=== PATIENT | male | born 2000 | race Caucasian/White ===

== ENCOUNTER 2021-02-04 09:26 | Emergency (ER) | payer OTHER, SELFPAY ==
--- NOTE | 2021-02-04 09:29 | ED.URI ---
HPI - URI/Sore Throat General Chief Complaint: Upper Respiratory Infection Stated Complaint: sore throat Time Seen by Provider: 02/04/21 09:29 Source: patient and RN notes reviewed History of Present Illness HPI Narrative: Patient is a 20-year-old male who presents the urgent care with complaints of sore throat for 3 days. Patient states he also ran 102.5 fever last night. States that he has been taking Mucinex but denies any use of Tylenol/ibuprofen. Patient denies of headache, nausea, vomiting. States that he has had Covid and has not had the vaccination. Denies of any known exposures to strep or Covid. No other acute complaints. No acute distress noted. Patient aware of the plan of care. Some parts of this dictation were generated by voice recognition software and may contain typographical and/or grammatical inaccuracies. Related Data Allergies Allergy/AdvReac Type Severity Reaction Status Date / Time No Known Allergies Allergy Verified 02/04/21 09:54 Review of Systems Review of Systems: CONSTITUTIONAL: Denies fever, chills, or sweats. EYES: Denies visual changes, redness, or discharge. ENT: Denies rhinorrhea, congestion, or otalgia. Reports of sore throat CARDIOVASCULAR: Denies chest pain, palpitations, or edema. RESPIRATORY: Denies cough or dyspnea. GASTROINTESTINAL: Denies abdominal pain, nausea, vomiting, or diarrhea. GENITOURINARY: Denies dysuria or hematuria. SKIN: Denies rash or itching. MUSCULOSKELETAL: Denies back pain, joint pain, or myalgia. NEUROLOGIC: Denies headache, numbness, or weakness. All other systems reviewed are negative, except as documented in HPI. PMFSH Comments At the time of my signature, I reviewed and agree with the nursing past medical, surgical, social, and family history. There is no relevant family history pertinent to the patient complaint. Exam Narrative: GENERAL: This is a well-nourished, well-developed patient, in no apparent distress. HEAD: normocephalic, atraumatic. EYES: PERRL. Sclera clear/white. Vision is grossly intact. EARS: External ears normal, auditory canals clear and without drainage, TMs normal without perforation. Hearing grossly intact. NOSE: External nose normal with no obvious nasal discharge, nares without redness, no rhinorrhea. THROAT: Mucous membranes moist, moderate erythema to the posterior pharynx with moderate postnasal drainage and exudate noted on the right NECK: Neck supple, non-tender without lymphadenopathy CARDIOVASCULAR: Regular rate and rhythm without murmurs, gallops, or rubs. RESPIRATORY: Clear to auscultation. Breath sounds equal bilaterally. No wheezes, rales, or rhonchi. SKIN: warm, intact with no suspicious lesions or rash, good texture and turgor. NEURO: awake, alert, and oriented to person, place and time. There were no obvious focal neurologic abnormalities. EXTREMITIES: No clubbing, cyanosis, or edema. Course Vital Signs Vital signs: Vital Signs Temperature 99.4 F 02/04/21 09:35 Pulse Rate 102 H 02/04/21 09:35 Respiratory Rate 16 02/04/21 09:35 Blood Pressure 129/71 02/04/21 09:35 Pulse Oximetry 98 02/04/21 09:35 Temperature 99.4 F 02/04/21 09:35 Pulse Rate 102 H 02/04/21 09:35 Respiratory Rate 16 02/04/21 09:35 Blood Pressure 129/71 02/04/21 09:35 Pulse Oximetry 98 02/04/21 09:35 Reviewed MDM - URI/Sore Throat MDM Narrative Medical decision making narrative: Reviewed lab results with the patient. He is aware that strep swab was negative. Educated patient on culture and we will call within 72 hours if culture is positive and antibiotics are necessary. We will send your PCR swab to the lab and call you within 3 days with your results. Until then, you should follow CDC guidelines and remain quarantined. Continue [id number] medications such as Tylenol/ibuprofen/Mucinex as needed. If you develop any increase in symptoms associated with high persistent fevers, nausea, vomiting, shortness of br
[2021-02-04 09:35] VITALS: BP 129/71; PULSE 102; RESP 16; TEMP 37.4; O2SAT 98
[2021-02-05 17:06] LABS: SARS-CoV-2 RNA PCR Negative
== END 2021-02-04 10:03 | disposition home or self-care (01) ==
PROVIDERS: Emergency Provider Nurse Practitioner Family; PCP Nurse Practitioner Family
DX: J02.9 Acute pharyngitis, unspecified (principal); Z20.822 Contact with and (suspected) exposure to COVID-19
CPT/HCPCS: 87081; 87880; 99213; C9803; G0463; U0003; U0005

== ENCOUNTER 2021-10-12 12:59 | Emergency (ER) | payer OTHER, MEDICAID, SELFPAY ==
[2021-10-12 13:20] VITALS: BP 125/66; PULSE 95; RESP 14; TEMP 36.8; O2SAT 100
--- NOTE | 2021-10-12 14:47 | ED.GENADULT ---
HPI - General Adult General Chief complaint: Upper Respiratory Infection Stated complaint: Fever/Sore Throat Source: patient Mode of arrival: ambulatory Limitations: no limitations History of Present Illness HPI narrative: Patient presents for evaluation of sore throat. Symptoms started 3 days ago and were mild at that time. 2 days ago he had worsening of his symptoms. He has experienced fever, chills, body aches, fatigue. He also has some pain in right ear and some cervical lymphadenopathy. He has a chronic mild productive cough of clear sputum, which is unchanged. He attributes this to electronic cigarette use. Denies any nausea, vomiting, diarrhea. No recent sick contacts to his knowledge. He had some 500mg amoxicillin leftover. He has been taking it twice per day since Tuesday. No additional complaints or concerns. Related Data Home Medications Medication Instructions Recorded Confirmed No Home Medications 10/12/21 10/12/21 Allergies Allergy/AdvReac Type Severity Reaction Status Date / Time No Known Allergies Allergy Verified 10/12/21 14:13 Review of Systems Review of Systems: CONSTITUTIONAL: Reports fever, chills, fatigue. EYES: Denies visual changes, redness, or discharge. ENT: Reports sore throat and right-sided otalgia. Denies rhinorrhea, congestion CARDIOVASCULAR: Denies chest pain, palpitations, or edema. RESPIRATORY: Reports mild chronic productive cough clear sputum. Denies dyspnea. GASTROINTESTINAL: Denies abdominal pain, nausea, vomiting, or diarrhea. GENITOURINARY: Denies dysuria or hematuria. SKIN: Denies rash or itching. MUSCULOSKELETAL: Reports generalized body aches NEUROLOGIC: Denies headache, numbness, dizziness, or weakness. PSYCHIATRIC: Denies anxiety or depression. [facility] Past Medical History Medical History No pertinent past medical history Surgical History Surgical History History of ankle surgery Family History Family History Mother Family history non-contributory Social History Social History Smoking status: Current every day smoker Tobacco type: e-cigarettes/vaping Substance use: current Substance use type: marijuana Gender identity (if verbalized by the patient): Male Sexual Orientation (if Verbalized by the Patient): Straight or Heterosexual Spiritual care concerns: No Exam Narrative: GENERAL: Well-appearing, well-nourished, and in no acute distress. HEAD: Normocephalic, atraumatic. EYES: PERRLA and EOMI. ENT: Nares clear, no rhinorrhea or epistaxis. Mucous membranes moist. Asymmetric appearance of his tonsils with right greater in size than left. There is white/green exudate to right tonsil. Uvula is midline. Bilateral TMs pearly arango nonbulging NECK: Supple. No adenopathy or masses. No carotid bruits or JVD CHEST: Clear to auscultation. No respiratory distress. No wheezes rales or rhonchi HEART: Regular rate and rhythm. No murmur heard. Normal peripheral pulses. ABDOMEN: Soft, nontender, nondistended, normal active bowel sounds. EXTREMITIES: Normal range of motion. No edema. SKIN: Warm, dry, no rash. NEURO: No focal deficits. Alert and oriented x3. PSYCH: Normal mood and affect. Course Course Emergency Course: This is a 20-year-old male here today for evaluation of a sore throat. I am concerned he may have a peritonsillar abscess based on asymmetric appearance of his tonsils with fever and chills. He had negative COVID, influenza, and strep test here. I advised he go to ER for further evaluation. He would like benefit from labs and CT imaging. He requested to go to [facility]. I called the facility and spoke with Adelaida, charge nurse, who indicated that Dr Troy would agree to accept pt to Dept
== END 2021-10-12 14:45 | disposition short-term general hospital (02) ==
PROVIDERS: Emergency Provider Nurse Practitioner; PCP Nurse Practitioner Family
DX: J02.9 Acute pharyngitis, unspecified (principal); Z20.822 Contact with and (suspected) exposure to COVID-19; F17.290 Nicotine dependence, other tobacco product, uncomplicated
CPT/HCPCS: 87081; 87426; 87804; 87880; 99213; C9803; G0463

== ENCOUNTER 2022-01-04 16:35 | Emergency (ER) | payer OTHER, SELFPAY ==
--- NOTE | ~2022-01-04 | XR_ITS ---
EXAM: XR foot RT min 3V DATE: 01/04/2022 17:04 HISTORY: 01/01/22 DROPPED 2 SHEETS OF PLY-WOOD. ANT. FOOT. . COMPARISON: None available. FINDINGS: Normal mineralization. No fracture or dislocation. No lytic or blastic lesion. Joint space s and physes are maintained. No erosion or periosteal change. Soft tissues within normal limits. IMPRESSION: No acute osseous finding in the right foot. Reviewed, dictated and finalized at location K.
--- NOTE | 2022-01-04 16:39 | ED.LOWEXIN ---
HPI - Extremity Injury (Lower) General Chief Complaint: Extremity Injury, Lower Stated Complaint: right foot injury Time Seen by Provider: 01/04/22 16:39 Source: patient and RN notes reviewed History of Present Illness HPI Narrative: Patient is a 21-year-old male who presents the urgent care with complaints of right foot pain, swelling and bruising. Patient states he dropped plywood on his foot on Tuesday while at work and is having increased pain and swelling. Patient states he is unable to bear weight on the foot today and therefore called off work. Patient has not done anything [id number] for his pain. No other acute complaints. No acute distress noted. Patient aware of the plan of care. Some parts of this dictation were generated by voice recognition software and may contain typographical and/or grammatical inaccuracies. Related Data Home Medications Medication Instructions Recorded Confirmed No Home Medications 10/12/21 10/12/21 Allergies Allergy/AdvReac Type Severity Reaction Status Date / Time No Known Allergies Allergy Verified 10/12/21 14:13 Review of Systems Review of Systems: CONSTITUTIONAL: Denies fever, chills, or sweats. EYES: Denies visual changes, redness, or discharge. ENT: Denies rhinorrhea, congestion, sore throat, or otalgia. CARDIOVASCULAR: Denies chest pain, palpitations, or edema. RESPIRATORY: Denies cough or dyspnea. GASTROINTESTINAL: Denies abdominal pain, nausea, vomiting, or diarrhea. GENITOURINARY: Denies dysuria or hematuria. SKIN: Denies rash or itching. MUSCULOSKELETAL: Reports of right foot pain and swelling NEUROLOGIC: Denies headache, numbness, or weakness. All other systems reviewed are negative, except as documented in HPI. [facility] Past Medical History Medical History (Updated 01/04/22 @ 17:22 by MESSI Prabhakar) No pertinent past medical history Surgical History Surgical History History of ankle surgery Family History Family History Mother Family history non-contributory Social History Social History Smoking status: Current every day smoker Tobacco type: e-cigarettes/vaping Substance use: current Substance use type: marijuana Gender identity (if verbalized by the patient): Male Sexual Orientation (if Verbalized by the Patient): Straight or Heterosexual Spiritual care concerns: No Comments At the time of my signature, I reviewed and agree with the nursing past medical, surgical, social, and family history. There is no relevant family history pertinent to the patient complaint. Exam Narrative: GENERAL: This is a well-nourished, well-developed patient, in no apparent distress. HEAD: normocephalic, atraumatic. EYES: PERRL. Sclera clear/white. Vision is grossly intact. EARS: External ears normal NOSE: External nose normal with no obvious nasal discharge, nares without redness, no rhinorrhea. THROAT: Mucous membranes moist NECK: Neck supple SKIN: warm, intact with no suspicious lesions or rash, good texture and turgor. NEURO: awake, alert, and oriented to person, place and time. There were no obvious focal neurologic abnormalities. EXTREMITIES: Mild dorsal right foot edema with mild 4 x 4 centimeter area of old ecchymosis to the dorsal lateral aspect of the right foot. Positive strong right pedal pulse with capillary refill less than 2 seconds. Range of motion of right lower extremity within normal limits with mild exacerbated pain on weightbearing Course Course Level of Care: Express Care Visit Vital Signs Vital signs: Vital Signs Temperature 97.8 F 01/04/22 16:47 Pulse Rate 90 01/04/22 16:47 Respiratory Rate 16 01/04/22 16:47 Blood Pressure 142/77 H 01/04/22 16:47 Pulse Oximetry 99 01/04/22 16:47 Oxygen Delivery Room Air 01/04/22 16:4
[2022-01-04 16:47] VITALS: BP 142/77; PULSE 90; RESP 16; TEMP 36.6; O2SAT 99
== END 2022-01-04 17:31 | disposition home or self-care (01) ==
PROVIDERS: Emergency Provider Nurse Practitioner Family; PCP Nurse Practitioner Family
DX: S90.31XA Contusion of right foot, initial encounter (principal); W20.8XXA Other cause of strike by thrown, projected or falling object, initial encounter; Y99.0 Civilian activity done for income or pay; F17.290 Nicotine dependence, other tobacco product, uncomplicated
CPT/HCPCS: 73630; 99213; G0463

== ENCOUNTER 2022-02-03 14:29 | Emergency (ER) | payer BC, OTHER, SELFPAY ==
[2022-02-03 14:31] VITALS: BP 126/80; PULSE 97; RESP 20; TEMP 37.1; O2SAT 97
--- NOTE | 2022-02-03 14:51 | ED.GENADULT ---
HPI - General Adult General Chief complaint: Nausea/Vomiting/Diarrhea Stated complaint: Vomiting/Headache Time Seen by Provider: 02/03/22 14:48 Source: patient, RN notes reviewed and old records reviewed Mode of arrival: ambulatory Limitations: no limitations History of Present Illness HPI narrative: 21-year-old male who presents to [facility] care with complaints of headache, vomiting, runny nose, cough some body aches since Tuesday. Patient states he has had his COVID vaccinations. Patient reports that he does not have and sore throat or any ear pain. Pateint denies any known fevers but has been sweating profusely. Patient reports that he has not been able to keep food down today but he has been drinking liquids., denies any abdominal pain, diarrhea or constipation. MD complaint: headache, vomiing, cough and runny nose Onset (ago): day(s) (5) Location: head Severity scale (1-10): 2 Quality: aching Treatments prior to arrival: other (Tylenol) Related Data Allergies Allergy/AdvReac Type Severity Reaction Status Date / Time No Known Allergies Allergy Verified 10/12/21 14:13 Review of Systems Review of Systems: CONSTITUTIONAL: Denies fever, chills, reports profuse sweating EYES: Denies visual changes, redness, or discharge. ENT: Positive for rhinorrhea, congestion, no sore throat, or otalgia. CARDIOVASCULAR: Denies chest pain, palpitations, or edema. RESPIRATORY: positive for cough denies dyspnea. GASTROINTESTINAL: Denies abdominal pain,positive for nausea, vomiting, no diarrhea. GENITOURINARY: Denies dysuria or hematuria. SKIN: Denies rash or itching. MUSCULOSKELETAL: Denies back pain, joint pain, or myalgia. NEUROLOGIC: Positive for headache,no numbness, or weakness. PSYCHIATRIC: Denies anxiety or depression. All systems reviewed & are unremarkable except as noted in HPI and below Eyes: Comments: o [facility] Past Medical History Medical History (Updated 02/04/22 @ 00:01 by Elaine Daemcamila) No pertinent past medical history Surgical History Surgical History History of ankle surgery Family History Family History Mother Family history non-contributory Social History Social History Smoking status: Current every day smoker Tobacco type: e-cigarettes/vaping Substance use: current Substance use type: marijuana Gender identity (if verbalized by the patient): Male Sexual Orientation (if Verbalized by the Patient): Straight or Heterosexual Spiritual care concerns: No Comments At time of signature, agree with nursing past medical, surgical, social and family history. There is no relevant family history pertinent to the presenting complaint Exam Narrative: GENERAL: Well-appearing, well-nourished, and in no acute distress. HEAD: Normocephalic, atraumatic. EYES: PERRLA and EOMI. ENT: Nares clear, clear rhinorrhea no epistaxis. Mucous membranes moist.TM's normal with good light reflex, throat pink with no lesions or swelling NECK: Supple. CHEST: Clear to auscultation. No respiratory distress.SAO2 97% on room air HEART: Regular rate and rhythm. No murmur heard. Normal peripheral pulses. ABDOMEN: Soft, nontender, nondistended, normal active bowel sounds. positive for nausea and vomiting EXTREMITIES: Normal range of motion. No edema. SKIN: Warm, dry, no rash. NEURO: No focal deficits. Alert and oriented x3. Course Course Level of Care: Express Care Visit Vital Signs Vital signs: Vital Signs Temperature 37.1 C 02/03/22 14:31 Pulse Rate 97 02/03/22 14:31 Respiratory Rate 20 02/03/22 14:31 Blood Pressure 126/80 02/03/22 14:31 Pulse Oximetry 97 02/03/22 14:31 Oxygen Delivery Room Air 02/03/22 14:31 Temperature 37.1 C 02/03/22 14:31 Pulse Rate 97 02/03/22 14:31 Respiratory Rate 20 02/03/22 14:31 Bl
== END 2022-02-03 15:30 | disposition home or self-care (01) ==
PROVIDERS: Emergency Provider Registered Nurse; PCP Nurse Practitioner Family
DX: B34.9 Viral infection, unspecified (principal); Z20.822 Contact with and (suspected) exposure to COVID-19; F17.290 Nicotine dependence, other tobacco product, uncomplicated; F12.90 Cannabis use, unspecified, uncomplicated
CPT/HCPCS: 87426; 87804; 99213; C9803; G0463

== ENCOUNTER 2022-08-04 10:42 | Emergency (ER) | payer OTHER, SELFPAY ==
[2022-08-04 10:56] VITALS: BP 123/74; PULSE 81; RESP 20; TEMP 36.6; O2SAT 100
--- NOTE | 2022-08-04 11:05 | ED.NAVMDI ---
HPI - Nausea/Vomiting/Diarrhea General Chief complaint: Nausea/Vomiting/Diarrhea Stated complaint: nausea diarrhea Time Seen by Provider: 08/04/22 11:05 Source: patient and RN notes reviewed History of Present Illness HPI Narrative: Patient is a 21-year-old male who presents to urgent care with complaints of nausea and vomiting that started yesterday. Patient states that the last thing he ate was at a sushi restaurant. Patient states he has tried to take something [id number] for nausea and DayQuil. Patient states he has mild abdominal cramping but believes they diarrhea has stopped. Denies any vomiting or fever. No other acute complaints. No acute distress noted. Patient aware of the plan of care. Some parts of this dictation were generated by voice recognition software and may contain typographical and/or grammatical inaccuracies. Related Data Allergies Allergy/AdvReac Type Severity Reaction Status Date / Time No Known Allergies Allergy Verified 08/04/22 11:01 Review of Systems Review of Systems: CONSTITUTIONAL: Denies fever, chills, or sweats. EYES: Denies visual changes, redness, or discharge. ENT: Denies rhinorrhea, congestion, sore throat, or otalgia. CARDIOVASCULAR: Denies chest pain, palpitations, or edema. RESPIRATORY: Denies cough or dyspnea. GASTROINTESTINAL: Reports of nausea, abdominal discomfort and diarrhea GENITOURINARY: Denies dysuria or hematuria. SKIN: Denies rash or itching. MUSCULOSKELETAL: Denies back pain, joint pain, or myalgia. NEUROLOGIC: Denies headache, numbness, or weakness. All other systems reviewed are negative, except as documented in HPI. [facility] Past Medical History Medical History (Updated 08/04/22 @ 11:28 by MESSI Prabhakar) No pertinent past medical history Surgical History Surgical History History of ankle surgery Family History Family History Mother Family history non-contributory Social History Social History Smoking status: Current every day smoker Tobacco type: e-cigarettes/vaping Substance use: current Substance use type: marijuana Gender identity (if verbalized by the patient): Male Sexual Orientation (if Verbalized by the Patient): Straight or Heterosexual Spiritual care concerns: No Comments At the time of my signature, I reviewed and agree with the nursing past medical, surgical, social, and family history. There is no relevant family history pertinent to the patient complaint. Exam Narrative: GENERAL: This is a well-nourished, well-developed patient, in no apparent distress. HEAD: normocephalic, atraumatic. EYES: PERRL. Sclera clear/white. Vision is grossly intact. EARS: External ears normal NOSE: External nose normal with no obvious nasal discharge, nares without redness, no rhinorrhea. THROAT: Mucous membranes moist NECK: Neck supple GASTROINTESTINAL: Abdomen soft, mild diffuse tenderness, nondistended. Bowel sounds are active. SKIN: warm, intact with no suspicious lesions or rash, good texture and turgor. NEURO: awake, alert, and oriented to person, place and time. There were no obvious focal neurologic abnormalities. EXTREMITIES: No clubbing, cyanosis, or edema. Course Course Level of Care: Express Care Visit Vital Signs Vital signs: Vital Signs Temperature 97.9 F 08/04/22 10:56 Pulse Rate 81 08/04/22 10:56 Respiratory Rate 20 08/04/22 10:56 Blood Pressure 123/74 08/04/22 10:56 Pulse Oximetry 100 08/04/22 10:56 Oxygen Delivery Room Air 08/04/22 10:56 Temperature 97.9 F 08/04/22 10:56 Pulse Rate 81 08/04/22 10:56 Respiratory Rate 20 08/04/22 10:56 Blood Pressure 123/74 08/04/22 10:56 Pulse Oximetry 100 08/04/22 10:56 Oxygen Delivery Room Air 08/04/22 10:56 Reviewed MDM - Nausea/Vomiting/Diar
== END 2022-08-04 11:33 | disposition home or self-care (01) ==
PROVIDERS: Emergency Provider Nurse Practitioner Family; PCP Nurse Practitioner Family
DX: R11.2 Nausea with vomiting, unspecified (principal); R19.7 Diarrhea, unspecified; F17.290 Nicotine dependence, other tobacco product, uncomplicated
CPT/HCPCS: 99213; G0463

== ENCOUNTER 2022-11-25 17:19 | Emergency (ER) | payer OTHER, SELFPAY ==
--- NOTE | 2022-11-25 17:22 | ED.URI ---
HPI - URI/Sore Throat General Chief Complaint: Upper Respiratory Infection Stated Complaint: Sore Throat Time Seen by Provider: 11/25/22 17:22 Source: patient Mode of arrival: ambulatory Limitations: no limitations History of Present Illness HPI Narrative: Boaz is a 22-year-old male patient presenting to the clinic today with complaints of a sore throat x1 day. He reports symptoms began yesterday. Complaints of headache and body aches as well. No known fever or chills. MD elicited complaint: sore throat Related Data Allergies Allergy/AdvReac Type Severity Reaction Status Date / Time No Known Allergies Allergy Verified 11/25/22 17:29 Review of Systems Review of Systems: Pertinent positives per HPI. Patient denies any fever, chills, rash, headache, visual changes, dizziness, cough, shortness of breath, chest pain, palpitations, nausea, vomiting, diarrhea, constipation, abdominal pain, or any urinary issues. PMFSH Past Medical History Medical History No pertinent past medical history Surgical History Surgical History History of ankle surgery Family History Family History Mother Family history non-contributory Social History Social History Smoking status: Current every day smoker Tobacco type: e-cigarettes/vaping Substance use: current Substance use type: marijuana Gender identity (if verbalized by the patient): Male Sexual Orientation (if Verbalized by the Patient): Straight or Heterosexual Spiritual care concerns: No Comments At the time of my signature, I reviewed and agree with the nursing past medical, surgical, social, and family history. There is no relevant family history pertinent to the patient complaint. Exam Narrative: General: Well-developed, well nourished, in no apparent distress Head: Normocephalic, atraumatic Eyes: Pupils equally round and reactive to light bilaterally, EOM intact, sclera and conjunctive clear, no discharge, lids normal Ears: TMs intact and clear, ear canals clear, no drainage, grossly hearing normal. Nose: Nares patent, no discharge, no inflammation, no sinus tenderness. Mouth: Oral pharynx red with bilateral tonsillar swelling without lesions or masses, good dentition, MMM. Neck: Supple, trachea midline, enlargement of anterior cervical nodes, no thyroid masses or goiter palpable. Cardio: Regular rate and rhythm, s1 and s2 normal, no murmur appreciated. Resp: Clear to auscultation bilaterally, no rhonchi, rales, wheezing or rubs Course Course Emergency Course: Portions of this record may have been created with voice recognition software. Level of Care: Express Care Visit Vital Signs Vital signs: Vital signs reviewed MDM - URI/Sore Throat MDM Narrative Medical decision making narrative: At the time of visit patient is resting comfortably on the exam table. Strep screen was obtained Differential Diagnosis Differential diagnosis: Likely upper respiratory infection, otitis media, sinusitis, viral infection, bronchitis, influenza, pharyngitis and other (COVID) Discharge Plan Discharge Clinical Impression: Acute streptococcal pharyngitis Patient Disposition: Home, Self-Care Condition: Stable Instructions: Antibiotic Form, Strep Throat (ED) Additional Instructions: Take prescription medications only as prescribed-amoxicillin Change your toothbrush in 24 hours after initiation of the antibiotics Increase fluids and stay well hydrated Tylenol/motrin for pain/fever Flonase and OTC antihistamines as directed Vicks vapor rub to open sinuses Sinus rinses for congestion Cepacol spray, cough drops, throat lozenges, warm tea with honey/lemon, gargle salt water to soothe throat BR
[2022-11-25 17:27] VITALS: BP 127/73; PULSE 109; RESP 16; TEMP 36.4; O2SAT 99
== END 2022-11-25 17:48 | disposition home or self-care (01) ==
PROVIDERS: Emergency Provider Nurse Practitioner Family; PCP Nurse Practitioner Family
DX: J02.0 Streptococcal pharyngitis (principal); F17.290 Nicotine dependence, other tobacco product, uncomplicated; F12.90 Cannabis use, unspecified, uncomplicated
CPT/HCPCS: 87880; 99213; G0463

== ENCOUNTER 2024-09-28 07:54 | Outpatient (CLI) | payer OTHER, SELFPAY ==
--- NOTE | ~2024-09-28 | US_ITS ---
US abdomen limited INDICATION: Right upper quadrant pain PROCEDURE: Realtime right upper abdominal ultrasound. COMPARISON: No prior studies for comparison. FINDINGS: The pancreas is normal without focal mass or pancreatic ductal dilation. Liver echotexture is increased, consistent with fatty infiltration. There is normal directional flow in the portal ve in. The gallbladder is normal without stones, gallbladder wall thickening or pericholecystic fluid. Comm on bile duct measures 4 mm. No sonographic Scott's sign. IMPRESSION: 1: Fatty infiltration of the liver. Reviewed, dictated and finalized at location A.
== END 2024-09-28 07:55 | disposition home or self-care (01) ==
PROVIDERS: PCP Nurse Practitioner Family; Visit Provider Nurse Practitioner Family
DX: K76.0 Fatty (change of) liver, not elsewhere classified (principal); R74.8 Abnormal levels of other serum enzymes
CPT/HCPCS: 76705

== ENCOUNTER 2025-03-26 09:07 | Emergency (ER) | payer OTHER, SELFPAY ==
[2025-03-26 09:12] VITALS: BP 134/81; PULSE 90; RESP 20; TEMP 37.3; O2SAT 100
--- OUTSIDE RECORDS SUMMARY | 2025-03-26 09:22 | XMS_ITS | Clinical Summary ---
Author Organization [facility] Address [address] [place] [address] Phone Care Team Providers Care Hearing Impaired Itinerant Teacher Name Role Phone Provider, None Primary Care Provider Unavailabl e Allergies No known active allergies Medications No known medications Active Problems No known active problems Social History Tobacco Use Types Packs/Day Years Used Date Smoking Tobacco: Never Assessed Sex and Gender Information Value Date Recorded Sex Assigned at Not on file Legal Sex Male 11:14 AM DETECTIVE CHIEF Gender Identity Not on file Sexual Orientation Not on file Last Filed Vital Signs Vital Sign Reading Time Taken Comments Blood Pressure 136/80 04/24/2018 11:27 AM DETECTIVE CHIEF Pulse 80 04/24/2018 11:27 AM DETECTIVE CHIEF Temperature 37.2 C (98.9 F) 04/24/2018 11:27 AM DETECTIVE CHIEF Respiratory Rate 16 04/24/2018 11:27 AM DETECTIVE CHIEF Oxygen Saturation 98% 04/24/2018 11:27 AM DETECTIVE CHIEF Inhaled Oxygen Concentration - - Weight 95.7 kg (211 lb) 04/24/2018 11:27 AM DETECTIVE CHIEF Height 190.5 cm (6' 3) 04/24/2018 11:27 AM DETECTIVE CHIEF Body Mass Index 26.37 04/24/2018 11:27 AM DETECTIVE CHIEF Plan of Treatment Health Maintenance Due Date Last Done Comments Hepatitis C Virus (HCV) Screening 1999 Influenza Immunization (#1) 01/14/202501/15, 03/24/2015, 02/14/2014, Additional history exists SARS-COV-2 Immunization ( season) 2025 02/20/2021 Respiratory Syncytial Virus (RSV) Immunization (Adult) (1 - 1-dose 75+ series) 11/23/2074 Pneumococcal Immunization Combined Aged Out 11/30/2000, 08/29/2000, 05/31/2000 No longer eligible based on patient's age to complete this topic Hepatitis B Immunization Completed 010, 08/29/2000, 1999, Additional history exists DTaP/Tdap/Td Immunization Discontinued 2010, 12/26/2004, 04/25/2001, Additional history exists TdaP Immunization Completed 2010 Human Papillomavirus (HPV) Immunization Completed 05/30/2014, 02/14/2014, 11/28/2013 Meningococcal Immunization (ACWY) Completed 02/10/2016, 2010 Rotavirus Immunization Aged Out No lo nger eligible based on patient's age to complete this topic Care Teams Hearing Impaired Itinerant Teacher Relationship Specialty Start Date End Date Provider, None [place] PCP - General 04/24/18
--- OUTSIDE RECORDS SUMMARY | 2025-03-26 09:22 | XMS_ITS | Clinical Summary ---
Author Organization [facility] Address [address] [place] [id number] Care Team Providers Care Caterpillar Tractor Operator Name Role Phone None, Provider MD Primary Care Provider Unavaila ble Allergies No known active allergies Medications No known medications Social History Tobacco Use Types Packs/Day Years Used Date Smoking Tobacco: Never Smokeless Tobacco: Never Tobacco Cessation:Counseling Given: Not Answered Alcohol Use Standard Drinks/Week Comments Not Currently 0 (1 standard drink = 0.6 oz pur e alcohol) Sex and Gender Information Value Date Recorded Sex Assigned at Male 06/18/2024 9:58 AM FARM CROPS TEACHER Legal Sex Male 1:07 PM CDT Gender Identity Not on file Sexual Orientation Not on file Last Filed Vital Signs Vital Sign Reading Time Taken Comments Blood Pressure 131/82 06/18/2024 12:49 PM FARM CROPS TEACHER Pulse 74 06/18/2024 12:49 PM FARM CROPS TEACHER Temperature 36.9 C (98.4 F) 06/18/2024 9:54 AM FARM CROPS TEACHER Respiratory Rate 20 06/18/2024 9:54 AM FARM CROPS TEACHER Oxygen Saturation 100% 06/18/2024 12:49 PM FARM CROPS TEACHER Inhaled Oxygen Concentration - - Weight 86.9 kg (191 lb 9.3 oz) 06/18/2024 9:54 A M FARM CROPS TEACHER Height 190.5 cm (6' 3) 06/18/2024 9:54 AM FARM CROPS TEACHER Body Mass Index 23.95 06/18/2024 9:54 AM FARM CROPS TEACHER Plan of Treatment Health Maintenance Due Date Last Done Comments Annual Physical 11/23/2002 DTaP, Tdap and Td Vaccines (6 - Tdap) 11/23/2010 12/26/2004, 04/25/2001, 05/31/2000, Additional history exists Hepatitis C 11/23/2017 Hepatitis B Vaccines (1 of 3 - 19+ 3-dose series) 11/23/2018 COVID-19 Vaccine ( season) 2025 Influenza Adult (#1) 2025 HPV Vaccines Completed 05/30/2014, 06/2013, 11/28/2013 Meningococcal Vaccine Completed 02/10/2016 Hepatitis A Vaccines Aged Out No long er eligible based on patient's age to complete this topic Meningococcal B Vaccine Aged Out No l onger eligible based on patient's age to complete this topic Pneumococcal Vaccine: Pediatrics (0 to 5 Years) and At-Risk Patients (6 to 49 Years) Aged Out No longer eligible based on patient's age to complete this topic RSV Immunizations Under 20 Months Aged Out No longer eligible based on patient's age to complete this topic Insurance Care Teams C[employer]pillar Tractor Operator Relationship Specialty Start Date End Date None, Provider, PCP - General UNKNOWN PHYSICIAN SPECIALTY 06/18/24
--- OUTSIDE RECORDS SUMMARY | 2025-03-26 09:22 | XMS_ITS | Clinical Summary ---
Author Organization [facility] Address [address] [place] [address] Care Team Providers Care Registered Radiation Therapist Name Role Phone Mariana Cox NP Primary Care Provider [phone] Allergies No known active allergies Medications melatonin 5 mg tablet Take 0.5 tablets (2.5 mg total) by mouth nightly Active hydrOXYzine (VISTARIL) 50 mg capsuleIndicati ons:anxiety Take 1 capsule (50 mg total) by mouth every 6 (six) hours as needed for anxiety for up to 20 doses 20 capsule 2 Active LORazepam (ATIVAN) 0.5 mg tabletIndicatio ns:Alcohol Withdrawal Syndrome,anxiet y Take 1 tablet (0.5 mg total) by mouth every 4 (four) hours as needed for anxiety (or withdrawal symptoms) for up to 10 doses 10 tablet 2 Active methocarbamoL (ROBAXIN) 750 mg tablet Take 1 tablet (750 mg total) by mouth every 6 (six) hours as needed for muscle spasms (muscle aches) for up to 10 doses 10 tablet 2 Active Active Problems Problem Noted Date Diagnosed Date Alcohol withdrawal syndrome, uncomplicated 03/29 Assessment & Plan (03/29/2022 5:11 PM SALES STOCK ASSOCIATE): Started on librium taper Prn supportive medications ordered for withdrawal symptoms Multivitamin, thiamine and folate ordered Pt plans to go to residential rehab once discharged. Hypokalemia 03/29/2022 Transaminitis 03/29/2022 Syndesmotic disruption of left ankle 07/23/2020 Closed fracture of left ankle 07/23/2020 Gastroesophageal reflux disease without esophagi tis Encounters Date Type Department Care Team Description 03/20/2025 2:26 PM SALES STOCK ASSOCIATE - 03/20/2025 3:42 PM SALES STOCK ASSOCIATE Emergency [facility] Emergency Department [address] [place] [address] Laceration of right middle finger without foreign body without damage to nail, initial encounter (Primary Dx) Discharge Disposition: Discharge to home or self care from Last 3 Months Surgical History Surgery Date Site/Laterality Comments KNEE ARTHROSCOPY 05/16/2013 - 05/15/2014 Left Arthroscopy knee APPENDECTOMY Medical History Medical History Date Comments Asthma as a child Social History Tobacco Use Types Packs/Day Years Used Date Smoking Tobacco: Former Vaping Passive Smoke Exposure: Past Smokeless Tobacco: Current Tobacco Cessation:Ready to Q uit: Not Asked; Counseling Given: Not Answered Comments:Pt vapes Alcohol Use Standard Drinks/Week Comments Yes 0 (1 standard drink = 0.6 oz pur e alcohol) occasional use AUDIT-C Answer Date Recorded Q1: How often do you have a drink containing alcohol? 4 or more times a week 04/14/2022 Q2: How many drinks containi ng alcohol do you have on a typical day when you are drinking? 5 or 6 Q3: How often do you have si x or more drinks on one occasion? Daily or almost daily 04/14/2022 PHQ-2 Answer Date Recorded PHQ-2 Score 0 01/05/2019 Personal Safety Answer Date Recorded Have you ever been in or are you currently in a harmful physical or emotional relationship or is someone making you feel afraid or unsafe? Denies 03/20/2025 Sex and Gender Information Value Date Recorded Sex Assigned at Not on file Legal Sex Male 12:45 PM SALES STOCK ASSOCIATE Gender Identity Not on file Sexual Orientation Not on file Last Filed Vital Signs Vital Sign Reading Time Taken Comments Blood Pressure 117/83 03/20/2025 2:45 PM SALES STOCK ASSOCIATE Pulse 78 03/20/2025 3:05 PM SALES STOCK ASSOCIATE Temperature 37.2 C (98.9 F) 03/20/2025 1:13 PM SALES STOCK ASSOCIATE Respiratory Rate 16 03/20/2025 1:13 PM SALES STOCK ASSOCIATE Oxygen Saturation 100% 03/20/2025 3:05 PM SALES STOCK ASSOCIATE Inhaled Oxygen Concentration - - Weight 90.7 kg (200 lb) 03/20/2025 1:13 PM SALES STOCK ASSOCIATE Height 190.5 cm (6' 3) 03/20/2025 1:13 PM SALES STOCK ASSOCIATE Body Mass Index 25 03/20/2025 1:13 PM SALES STOCK ASSOCIATE Plan of Treatment Health Maintenance Due Date Last Done Comments Regular Well Visit/Exam 18-64 11/23/2017 Pneumococcal vaccine <65 (1 of 1 - PPSV23, PCV20, or PCV21) 11/23/2018 11/30/2000, 08/29/2000, 05/31/2000 Depression Screening 09/05/2019 09/04/2018, 09/05/19 19 DTaP/Tdap/Td Vaccine (7 - Td or Tdap) 2020 2010, 12/26/2004, 04/25/2001, Additional history exists Influenza Vaccine (#1) 2025 9, 02/10/2016, 03/24/2015, Additional history exists Varicella Vaccines Completed 10/30/2008, 11/30/2000 Hepatitis B Screening Completed 03/05/2010 , 08/29/2000, 1999, Additional history exists HPV Vaccines Completed 05/30/2014, 06/2013, 11/28/2013 Hepatitis C Screening Completed 03/30/2022 Medical Devices Implanted Type Area Molding Machine Tender Device Identifier Shelf Expiration Date Model / Serial / Lot [employer] [id number] Fibulock 3mm 130mm Fibular Left Nail Intramedullary - [id number] Implanted:Qty: 1 on 07/30/2020 by Robin Lugo MD at [facility] Left: Ankle [employer] 04/14/2025 [id number] / / [id number] [employer] [id number] System Fxatn Tightrope Xp Ss Syndesmosis Repair - [id number] Implanted:Qty: 1 on 07/30/2020 by Robin Lugo MD at [facility] Left: Ankle [employer] 01/13/2025 [id number] / / [id number] Procedures Procedure Name Priority Date/Time Associated Diagnosis Comments HEPATITIS PANEL, ACUTE Routine 03/30/2022 5:33 AM SALES STOCK ASSOCIATE from Last 3 Months or Most Recently Relevant to Health Maintenance Results * Hepatitis panel, acute (03/30/2022 5:33 AM SALES STOCK ASSOCIATE) Hep A IgM Nonreactive Nonreactive [facility] (CAR[place]) Comment: Interpretive Data: If Hep A IgM Ab is reported as Equivocal, a new sample should be drawn in two weeks for testing. Current interpretive data was last revised on 19. Testing performed by: [facility], [address] [place] [address]., [id number] Hep B core IgM Nonreactive Nonreactive C SYDNIEER RODOLFO (CARLITOS) Comment: Interpretive Data If HepB Core IgM Ab is reported as Equivocal, a new sample should be drawn in two weeks for testing. Current interpretive data was last revised on 19. Testing performed by: [facility], [address] [place] [address]., [id number] Hep C Ab Nonreactive Nonreactive [facility] (CARLITOS) Comment: Interpretive Data Nonreactive: Antibodies to HCV not detected. Does NOT exclude the possibility of recent exposure to HCV. Equivocal: Equivocal for HCV antibodies. Supplemental molecular testing will be automatically performed to determine infection status in accordance with current CDC screening recommendations. Reactive: Positive for HCV antibodies. This may represent current or past HCV infection. Supplemental molecular testing will be automatically performed to determine current infection status in accordance with current CDC screening recommendations. Interpretive data was last revised on 2019. Testing performed by: [address] [address] HepBsAg Nonreactive Nonreactive [facility] ([place]) Comment:Testing performed by : [address] [address] Blood 03/30/2022 5:33 AM SALES STOCK ASSOCIATE 03/30/2022 11:04 AM SALES STOCK ASSOCIATE Cheryl Cisneros MD LAB MICROBIOLOGY - GENERAL CRUZITO REYES Final Result [facility] ([place]) [address] [facility] Department [place] [address] from Last 3 Months or Most Recently Relevant to Health Maintenance Insurance [facility] ACCESS IDPA CIGNA CIG [id number] [place] [address] Advance Directives For more information, please contact: [phone] * Full Code (Latest Code Status on File) Date Activated Date Inactivated Comments 04/14/2022 12:41 PM 04/18/2022 2:02 PM * Full Code Date Activated Date Inactivated Comments 03/29/2022 2:17 PM 04/02/2022 4:15 PM * Full Code Date Activated Date Inactivated Comments 09/04/2018 11:02 PM 09/05/2018 10:04 PM Care Teams Registered Radiation Therapist Relationship Specialty Start Date End Date Mariana Cox NP [id number] [place] [address] PCP - General Family Practice 03/20/25
--- NOTE | 2025-03-26 09:41 | ED_ITS ---
HPI - Wound/Laceration General Chief Complaint: Wound/Laceration Stated Complaint: Stitches in right hand popped open Time Seen by Provider: 03/26/25 09:20 Source: patient and RN notes reviewed Mode of arrival: ambulatory Limitations: no limitations History of Present Illness HPI narrative: 24-year-old male patient presents to the [facility] complaining of sutures rupturing. Patient said he had sutures applied to his right middle finger approximately 1 week ago from a laceration from a cut of a knife. Patient id today at work he noticed blood coming from the wound and noticed that to his sutures were brought. Patient 3 sutures placed. Patient has kept the dressing in place while working. Patient denies any increased redness, swelling pain, fevers, drainage drink any other concerns. Related Data Home Medications ?Medication ?Instructions ?Recorded ?Confirmed ?Last Taken ?Type tadalafil 2.5 mg tablet 2.5 mg PO DAILY 11/21/2402/07 Unknown History Allergies Allergy/AdvReac Type Severity Reaction Status Date / Time No Known Allergies Allergy Verified 03/26/25 09:20 Review of Systems Review of Systems: CONSTITUTIONAL: Denies fever, chills, or sweats. EYES: Denies visual changes, redness, or discharge. ENT: Denies rhinorrhea, congestion, sore throat, or otalgia. CARDIOVASCULAR: Denies chest pain, palpitations, or edema. RESPIRATORY: Denies cough or dyspnea. GASTROINTESTINAL: Denies abdominal pain, nausea, vomiting, or diarrhea. GENITOURINARY: Denies dysuria or hematuria. SKIN: Denies rash or itching. Positive for laceration. MUSCULOSKELETAL: Denies back pain, joint pain, or myalgia. NEUROLOGIC: Denies headache, numbness, or weakness. PSYCHIATRIC: Denies anxiety or depression. All other systems reviewed are negative, except as documented in HPI. [facility] Past Medical History Medical History BMI 21.0-21.9, adult Surgical History Surgical History Hx of knee surgery History of appendectomy History of ankle surgery Family History Family History Mother Family history non-contributory Hypertension Diabetes mellitus Father Hypertension Social History Social History Tobacco type: e-cigarettes/vaping and smokeless tobacco Second hand tobacco smoke exposure: No Alcohol intake: former Substance use: former Substance use type: marijuana Do You Feel Safe in your Home?: Yes Lack of Transportation: No Lack of Food: Never True Current Housing: I Have Housing Concerned About Future Housing: No Difficulty Paying Gas/Electric Bills: No Difficulty Paying for Meds: No Currently Unemployed: No Education: High School Diploma/GED Difficulty w/ Childcare or Family Care: No Living arrangements: with family Occupation/Education: student Additional occupation/education comments: [employer] Gender identity (if verbalized by the patient): Male Sexual Orientation (if Verbalized by the Patient): Straight or Heterosexual Spiritual care concerns: No Comments At the time of my signature, I reviewed and agree with the nursing past medical, surgical, social, and family history. There is no relevant family history pertinent to the patient complaint. Exam Narrative: GENERAL: This is a well-nourished, well-developed adult, in no apparent distress. They are non ill-appearing, nontoxic appearing. HEAD: normocephalic, atraumatic. EYES: Sclera clear/white. Conjunctiva normal. Vision is grossly intact. Extraocular movements intact EARS: External ears normal,Hearing grossly intact. NOSE: External nose normal THROAT: Mucous membranes moist, NECK: Neck supple, CARDIOVASCULAR: Regular rate and rhythm RESPIRATORY: Respiratory rate normal, respiratory effort nonlabored, no respiratory distress SKIN: warm, Dry, intact with no suspicious lesions or rash, good texture and turgor. NEURO: awake, alert, and oriented to person, place and time. There were no obvious focal neurologic abnormalities. EXTREMITIES: Right middle finger: Laceration present to proximal palmar surface finger. One suture intact, 2 sutures are broken. Part the wound is unapproximated. No surrounding erythema, swelling, exudate nontender to palpate. BACK: Nontender without deformity. No CVA tenderness. Course Course Emergency Course: Portions of this record may have been created with voice recognition software Level of Care: Express Care Visit Vital Signs Vital signs: Vital Signs Temperature 99.1 F 03/26/25 09:12 Pulse Rate 90 03/26/25 09:12 Respiratory Rate 20 03/26/25 09:12 Blood Pressure 134/81 03/26/25 09:12 Pulse Oximetry 100 03/26/25 09:12 Oxygen Delivery Room Air 03/26/25 09:12 Temperature 99.1 F 03/26/25 09:12 Pulse Rate 90 03/26/25 09:12 Respiratory Rate 20 03/26/25 09:12 Blood Pressure 134/81 03/26/25 09:12 Pulse Oximetry 100 03/26/25 09:12 Oxygen Delivery Room Air 03/26/25 09:12 Reviewed MDM - Wound/Laceration MDM Narrative Medical decision making narrative: Two sutures are broken, they were removed successfully. One suture intact, will keep it in place. To aid with approximation, Steri-Strip was loosely applied over the wound. There is no evidence of infection. Non adherent dressing applied, wound care was performed by nursing staff. Patient should have the other suture removed in approximately 3 days. Discussed physical exam findings. Advised supportive measures and signs/symptoms to go to the ER. Pt is appropriate for outpt treatment and f/u. Differential Diagnosis Differential diagnosis: Likely laceration and other (Suture check, broken suture, cellulitis) Critical Care Time Critical Care Time Critical Care Time: No Discharge Plan Discharge Clinical Impression: Broken suture Qualifiers: Encounter type: initial encounter Qualified Code(s): T81.31XA - Disruption of external operation (surgical) wound, not elsewhere classified, initial encounter Patient Disposition: Home Condition: Stable Instructions: Antibiotic Form, Care For Your Stitches (ED) Additional Instructions: 2 sutures were removed today that were broken. Please get the last suture removed on day 10 of your stitches. Leave the Steri-Strips on until day 10 of your stitches. Wash the wound daily with mild soap and water, do not soak or scrub the wound. Do NOT wash with peroxide or alcohol. Avoid dirty water to the wound is healed completely. Please keep the wound dry and covered with a non adherent dressing. The dressing daily. May apply Vaseline to the wound daily. Continue To look for signs of infection such as redness, swelling, increased pain, warmth, or drainage. ?Go to the ER for any signs of infection or any serious concerns. Patient Language: Divehi Prescriptions: No Action tadalafil 2.5 mg tablet 2.5 mg PO DAILY sertraline 100 mg tablet 100 mg PO DAILY Qty: 90 0RF hydroxyzine HCl 25 mg tablet 25 mg PO TID PRN (Reason: anxiety) Qty: 30 0RF Follow-up/Referrals: Mariana Cox APRN [Primary Care Provider, Family Practice] Stand Alone Forms: Work/School Release IP Time of Disposition: 09:36
== END 2025-03-26 09:42 | disposition home or self-care (01) ==
PROVIDERS: PCP Nurse Practitioner Family
DX: T81.31XA Disruption of external operation (surgical) wound, not elsewhere classified, initial encounter (principal); F17.290 Nicotine dependence, other tobacco product, uncomplicated
CPT/HCPCS: 99212; G0463